=== PATIENT | female | born 1990 | race Caucasian/White ===

== ENCOUNTER 2017-04-10 16:01 | Emergency (ER) | payer SELFPAY ==
[2017-04-10] MEDS ORDERED: Sodium Chloride 0.9% 10 ML Syringe FLUSH PRN (16:05)
[2017-04-10] MEDS ORDERED: Sodium Chloride 0.9% 2.5 ML Syringe FLUSH PRN (16:05)
[2017-04-10] MEDS ORDERED: Aspirin 81 MG Tab.Chew PO ONE (16:05)
[2017-04-10] MEDS ORDERED: Ondansetron 4 MG/2 ML SDV IVPUSH ONE ×2 (16:07→16:40)
[2017-04-10] MEDS ORDERED: Famotidine 20 MG/2 ML SDV IVPUSH ONE (16:07)
[2017-04-10] MEDS ORDERED: Nitroglycerin 0.4 MG Tab.SL SL SCH (16:15)
[2017-04-10] MEDS ORDERED: Sodium Chloride 0.9% 1,000 ML IV ONE (16:40)
--- NOTE | 2017-04-10 16:55 | EDM.PDOC ---
ED HPI GENERAL MEDICAL PROBLEM - General Chief Complaint: Gastrointestinal Problem Stated Complaint: UNK Time Seen by Provider: 04/10/17 16:09 Source of Information: Reports: Patient History Limitations: Reports: No Limitations - History of Present Illness INITIAL COMMENTS - FREE TEXT/NARRATIVE: Presents to the ER reporting she is 9 weeks and has been nauseated generally the entire . This last week she has not been able to keep oral fluids down and feels that she is dehydrated. She states this is her fourth and in her last she had trouble with nausea and vomiting as well. She is otherwise well without dysuria, vaginal bleeding, abdominal pain or cramping, fever or upper respiratory symptoms. She has not established care but was seen at a clinic over in [facility] where she had a positive test and OB ultrasound which indicated a viable fetus. - Related Data Allergies Allergy/AdvReac Type Severity Reaction Status Date / Time No Known Allergies Allergy Verified 04/10/17 16:14 Home Meds: Home Meds . 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 ED EXAM - Physical Exam Exam: See Below Exam Limited By: No Limitations General Appearance: Alert, Mild Distress (Due to nausea) Ears: Normal External Exam Nose: Normal Inspection Throat/Mouth: Normal Inspection Head: Atraumatic, Normocephalic Neck: Normal Inspection Respiratory/Chest: No Respiratory Distress, Lungs Clear, Normal Breath Sounds, No Accessory Muscle Use Cardiovascular: Normal Peripheral Pulses, Regular Rate, Rhythm, No Murmur GI/Abdominal: Normal Bowel Sounds, Soft, Non-Tender, No Distention Back Exam: Normal Inspection Extremities: Normal Inspection Neurological: Alert, Oriented Psychiatric: Normal Affect, Normal Mood Skin Exam: Warm, Dry, Intact, Normal Color, No Rash Lymphatic: No Adenopathy Course - Vital Signs Last Recorded V/S: Last Vital Signs Temp 36.8 C 04/10/17 16:12 Pulse 88 04/10/17 16:12 Resp 16 04/10/17 16:12 BP 148/90 H 04/10/17 16:12 Pulse Ox 98 04/10/17 16:12 - Orders/Labs/Meds Orders: Active Orders 24 hr Category Date Time Status Cardiac Monitoring [RC] . DIRECTED Care 04/10/17 16:05 Inactive EKG Documentation Completion [RC] STAT Care 04/10/17 16:05 Inactive Oxygen Therapy, ED [RC] ASDIRECTED Care 04/10/17 16:04 Inactive Pulse Oximetry [RC] ASDIRECTED Care 04/10/17 16:05 Inactive Sodium Chloride 0.9% [Normal Saline] 1,000 ml Med 04/10/17 16:40 Ordered IV STAT Medication Orders Sodium Chloride (Normal Saline) 1,000 mls @ 999 mls/hr IV STAT ONE Stop: 04/10/17 17:40 Meds: Medications Generic Name Dose Route Start Last Admin Trade Name Freq PRN Reason Stop Dose Admin Sodium Chloride 1,000 mls @ 999 mls/hr 04/10/17 16:40 Normal Saline IV 04/10/17 17:40 STAT ONE Discontinued Medications Generic Name Dose Route Start Last Admin Trade Name Freq PRN Reason Stop Dose Admin Aspirin 324 mg 04/10/17 16:05 04/10/17 16:31 Aspirin PO 04/10/17 16:06 Not Given ONETIME ONE Famotidine 20 mg 04/10/17 16:07 04/10/17 16:32 Pepcid IVPUSH 04/10/17 16:08 Not Given ONETIME ONE Nitroglycerin 0.4 mg 04/10/17 16:15 Nitrostat SL 04/10/17 16:26 Q5M AVIS Ondansetron HCl 4 mg 04/10/17 16:07 04/10/17 16:32 Zofran IVPUSH 04/10/17 16:08 Not Given ONETIME ONE Ondansetron HCl 4 mg 04/10/17 16:40 Zofran IVPUSH 04/10/17 16:41 ONETIME ONE Sodium Chloride 10 ml 04/10/17 16:05 Saline Flush FLUSH ASDIRECTED PRN Keep Vein Open Sodium Chloride 2.5 ml 04/10/17 16:05 Saline Flush FLUSH ASDIRECTED PRN Keep Vein Open - Re-Assessments/Exams Free Text/Narrative Re-Assessment/Exam: 04/10/17 17:38 She states that she is feeling much better, not nauseated. She is tired and desires not to work today Departure - Departure Time of Disposition: 17:39 Disposition: Home, Self-Care 01 Condition: good Clinical Impression: Nausea and vomiting during - Discharge Information Referrals: PCP,None [Primary Care Provider] - Huy Aguilera MD [Physician] - [facility] [Outside] Forms: ED Department Discharge Additional Instructions: 1. please drink adequate oral fluids including water and electrolyte solutions such as Gatorade 2. please establish care within the next couple of weeks at one of the providers listed or another of your choice. 3. May try doxylamine (Unisom Sleep Tabs--10mg) and vitamin B6 10mg together 2 tabs each at bedtime. May increase slowly to 4 tabs daily of each. For nausea. - My Orders Last 24 Hours: My Active Orders 04/10/17 16:40 Sodium Chloride 0.9% [Normal Saline] 1,000 ml IV STAT - Assessment/Plan Last 24 Hours: My Active Orders 04/10/17 16:40 Sodium Chloride 0.9% [Normal Saline] 1,000 ml IV STAT
[2017-04-10 18:11] VITALS: BP 124/75
== END 2017-04-10 18:02 | disposition home or self-care (01) ==
LOC: MW.ED 16:01
DX: O21.9 Vomiting of pregnancy, unspecified (principal); O99.331 Smoking (tobacco) complicating pregnancy, first trimester; F17.210 Nicotine dependence, cigarettes, uncomplicated; Z3A.09 9 weeks gestation of pregnancy
CPT/HCPCS: 96361; 96374; 99285; J2405; J7040; 99284

== ENCOUNTER 2017-11-06 05:14 | Inpatient (IN) | payer MEDICAID ==
[2017-11-06] MEDS ORDERED: ceFAZolin 2 GM in Premix Bag 1 BAG IV ONE (05:23)
[2017-11-06] MEDS ORDERED: Sodium Chloride 0.9% 2.5 ML Syringe FLUSH PRN (05:23)
[2017-11-06] MEDS ORDERED: Sodium Chloride 0.9% 10 ML Syringe FLUSH PRN (05:23)
[2017-11-06] MEDS ORDERED: Citric Acid/Sodium Citrate Solution 30 ML Cup PO SCH (05:30)
[2017-11-06] MEDS ORDERED: Oxytocin/0.9 % Sodium Chloride 30 UNIT/500 ML BAG IV SCH (05:30)
--- NOTE | 2017-11-06 06:54 | PCM.PREANE ---
Preanesthetic Assessment - Anesthesia/Transfusion/Family Hx Anesthesia History: Prior Anesthesia Without Reaction Family History of Anesthesia Reaction: No Transfusion History: No Prior Transfusion(s) Intubation History: Unknown - Review of Systems General: No Symptoms Pulmonary: No Symptoms Cardiovascular: No Symptoms Gastrointestinal: No Symptoms Neurological: No Symptoms Other: Reports: None - Physical Assessment Height: 1.65 m Weight: 94.347 kg ASA Class: 2 Mental Status: Alert & Oriented x3 Airway Class: Mallampati = 2 Dentition: Reports: Normal Dentition Thyro-Mental Finger Breadths: 3 Mouth Opening Finger Breadths: 3 ROM/Head Extension: Full Lungs: Clear to Auscultation, Normal Respiratory Effort Cardiovascular: Regular Rate, Regular Rhythm - Lab Values: Laboratory Last Values WBC 10.34 K/uL (4.0-11.0) 11/05/17 13:31 RBC 4.30 M/uL (4.30-5.90) 11/05/17 13:31 Hgb 12.8 g/dL (12.0-16.0) 11/05/17 13:31 Hct 37.3 % (36.0-46.0) 11/05/17 13:31 MCV 86.7 fL (80.0-98.0) 11/05/17 13:31 MCH 29.8 pg (27.0-32.0) 11/05/17 13:31 MCHC 34.3 g/dL (31.0-37.0) 11/05/17 13:31 RDW Std Deviation 41.2 fl (28.0-62.0) 11/05/17 13:31 RDW Coeff of Shilo 13 % (11.0-15.0) 11/05/17 13:31 Plt Count 224 K/uL (150-400) 11/05/17 13:31 MPV 11.00 fL (7.40-12.00) 11/05/17 13:31 Nucleated RBC % 0.0 /100WBC 11/05/17 13:31 Nucleated RBCs # 0 K/uL 11/05/17 13:31 Blood Type A POSITIVE 11/05/17 13:31 Antibody Screen NEGATIVE 11/05/17 13:31 - Allergies Allergies/Adverse Reactions: Allergies Allergy/AdvReac Type Severity Reaction Status Date / Time No Known Allergies Allergy Verified 04/10/17 16:14 - Blood Blood Available: No - Anesthesia Plan Pre-Op Medication Ordered: None - Acknowledgements Anesthesia Type Planned: Spinal Pt an Appropriate Candidate for the Planned Anesthesia: Yes Alternatives and Risks of Anesthesia Discussed w Pt/Guardian: Yes Pt/Guardian Understands and Agrees with Anesthesia Plan: Yes PreAnesthesia Questionnaire - Past Health History Medical/Surgical History: Denies Medical/Surgical History HEENT History: Reports: None Gastrointestinal History: Reports: Other (See Below) Other Gastrointestinal History: heartburn with Genitourinary History: Reports: UTI, Recurrent 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 Martin - SUBSTANCE USE Smoking Status *Q: Current Every Day Smoker Tobacco Use Within Last Twelve Months: Cigarettes Recreational Drug Use History: No - HOME MEDS Home Medications: Home Meds PNV95/Ferrous Fumarate/FA [ Vitamin Tablet] 1 tab PO DAILY 11/01/17 [ History] Terconazole [Terazol 7 Vaginal Crm] 1 applic VAG BEDTIME 11/01/17 [History] - CURRENT (IN HOUSE) MEDS Current Meds: Current Medications Citric Acid/Sodium Citrate (Bicitra Solution) 30 ml PO .ONCE AVIS Lactated Ringer's (Ringers, Lactated) 1,000 mls @ 500 mls/hr IV .BOLUS AVIS Oxytocin/Sodium Chloride (Oxytocin 30 Unit/500 Ml-Ns) 30 unit in 500 mls @ 250 mls/hr IV TITRATE AVIS Sodium Chloride (Saline Flush) 10 ml FLUSH ASDIRECTED PRN PRN Reason: Keep Vein Open Sodium Chloride (Saline Flush) 2.5 ml FLUSH ASDIRECTED PRN PRN Reason: Keep Vein Open Discontinued Medications Cefazolin Sodium/Dextrose 2 gm (/ Premix) 50 mls @ 100 mls/hr IV ONETIME ONE Stop: 11/06/17 05:52
[2017-11-06] MEDS ORDERED: fentaNYL 100 MCG/2 ML SDV IVPUSH PRN (07:12)
[2017-11-06] MEDS ORDERED: fentaNYL 100 MCG/2 ML SDV ONE (07:16)
[2017-11-06] MEDS ORDERED: Morphine PF 10 MG/10 ML SDV ONE (07:16)
[2017-11-06] MEDS ORDERED: ePHEDrine 50 MG/ML SDV ONE (07:17)
[2017-11-06] MEDS ORDERED: Ondansetron 4 MG/2 ML SDV ONE (07:17)
[2017-11-06] MEDS ORDERED: Oxytocin 10 Units/1 ML SDV ONE (07:17)
[2017-11-06] MEDS ORDERED: Ketorolac 30 MG/ML SDV ONE (07:17)
[2017-11-06] MEDS ORDERED: diphenhydrAMINE 50 MG/ML SDV ONE (07:17)
[2017-11-06] MEDS ORDERED: Octyl 2-Cyanoacrylate 1 Tube ONE (07:17)
[2017-11-06] MEDS ORDERED: ceFAZolin 1 GM Vial ONE (07:18)
[2017-11-06] MEDS ORDERED: Sodium Chloride 0.9% 20 ML ONE (07:18)
[2017-11-06] MEDS: Lactated Ringers 1,000 ML IV SCH ×2 (07:24→07:29)
[2017-11-06] MEDS: Ketorolac 30 MG/ML SDV IVPUSH SCH ×3 (08:40→21:11)
[2017-11-06] MEDS ORDERED: diphenhydrAMINE 50 MG/ML SDV IVPUSH PRN (08:58)
[2017-11-06] MEDS ORDERED: Bisacodyl 10 MG Supp RECTAL PRN (08:58)
[2017-11-06] MEDS ORDERED: Lanolin 100% Cream 7 GM Tube TOP PRN (08:58)
[2017-11-06] MEDS ORDERED: Acetaminophen/oxyCODONE 325-5 MG Tab PO PRN ×2 (08:58)
[2017-11-06] MEDS ORDERED: Ondansetron 4 MG/2 ML SDV IV PRN (08:58)
[2017-11-06] MEDS ORDERED: Lactated Ringers 1,000 ML IV SCH (09:00)
--- NOTE | 2017-11-06 09:09 | PCM.OPNOTE ---
- General Post-Op/Procedure Note Date of Surgery/Procedure: 11/06/17 Operative Procedure(s): repeat low transverse c-sectin Findings: lower uterine segment is very thin. The tubes and ovaries appear normal. Liveborn female 7/8 weight pending. Pre Op Diagnosis: 39 weeks previous polyhydramnios Post-Op Diagnosis: Same Anesthesia Technique: Spinal Primary Surgeon: Nicki Franks Anesthesia Provider: Lauren Meza Pest Control Supervisor: Angi Clay Pathology: placenta to pathology Fluid Replacement, Intraop: 850 Output, Urine Amount: 100 EBL in mLs: 800 Complications: None Known Condition: Good
--- NOTE | 2017-11-06 09:35 | PCM.POSTAN ---
POST ANESTHESIA ASSESSMENT - MENTAL STATUS Mental Status: Alert, Oriented - RESPIRATORY Respiratory Status: Respiratory Rate WNL, Airway Patent, O2 Saturation Stable - CARDIOVASCULAR CV Status: Pulse Rate WNL, Blood Pressure Stable - GASTROINTESTINAL GI Status: No Symptoms - PAIN Pain Score: 0 - POST OP HYDRATION Hydration Status: Adequate & Stable
[2017-11-06] MEDS: Docusate Sodium 100 MG Cap PO SCH ×2 (10:26→21:11)
--- NOTE | 2017-11-06 16:54 | OR ---
SURGEON: Nicki Franks M.D. DATE OF PROCEDURE: 11/06/2017 PREOPERATIVE DIAGNOSES: 1. A 39-week intrauterine . Prior delivery, desires repeat C section. 2. Polyhydramnios asymmetric growth restriction. POSTOPERATIVE DIAGNOSES: 1. A 39-week intrauterine . Prior delivery, desires repeat C section. 2. Polyhydramnios asymmetric growth restriction. PROCEDURE: Repeat low transverse section. ANESTHESIA: Spinal. ESTIMATED BLOOD LOSS: 800 mL. FLUIDS: 850 mL crystalloid. FINDINGS: Liveborn female, score 7 and 8. Weight is pending at the time of dictation. Normal appearing tubes and ovaries. The lower uterine segment was very thin. COMPLICATIONS: None. DISPOSITION: Stable to recovery. BRIEF HISTORY: This is a 26-year-old female. She is G4, P2-0-1-2. She presents at 39 weeks' gestation for a repeat delivery. She has been closely monitored throughout the for polyhydramnios as well as asymmetric IUGR. She has been followed with perinatologist who recommended twice weekly testing including umbilical artery Dopplers, which have been normal. Her growth is improved in the 3rd trimester. TORCH titers were obtained due to the polyhydramnios and were negative. There was also a normal noninvasive testing for chromosomes. She herself has had poor weight gain and late onset to care. She is blood type A positive, rubella immune, group B strep negative. The risks of delivery were discussed including bleeding, infection, injury to bowel, bladder, blood vessels, injury to other organs, risk of thromboembolic event, and risk of anesthesia. Understanding all these risks, she does desire to proceed. DESCRIPTION OF PROCEDURE: With the patient in the left tilt position, under adequate spinal analgesia, the abdomen was prepped with chlorhexidine and draped in usual fashion for abdominal surgery. SCDs were in place. Diop catheter had been placed. She received 2 g of Ancef IV and an appropriate time-out was held. After documentation of adequate analgesia, the prior cicatrix was excised and the incision was carried through the subcutaneous tissue to the fascia, which was scored transversely in the midline. The fascia was elevated from the underlying rectus muscle and using sharp and blunt dissection. The rectus muscles were in the midline using sharp dissection. A finger was then placed into the peritoneal cavity. There were no adhesions to the anterior abdominal wall. The incision was extended cephalad and caudad using sharp dissection and the incision was extended also using blunt dissection. The Sharad O retractor was placed. The visceroperitoneum over the lower uterine segment was incised and in doing so, the lower uterine segment was noted to be very thin. In fact, the scalpel was not needed to pass through the lower uterine segment. A finger was utilized to separate the lower uterine segment. Amniotic membranes were ruptured. Copious clear fluid was noted. The head was delivered via the uterine incision with fundal pressure. However, most likely due to the polyhydramnios, adequate fundal pressure could not be obtained to deliver the head. Therefore, a vacuum was placed 2 cm anterior to the posterior fontanelle in the midsagittal line and with fundal pressure and gentle traction, the head was delivered. There were no pop offs. The vacuum was removed. The 's shoulders and body were delivered. The infant was bulb suctioned by nose and mouth. The cord was clamped x2 and cut and the infant was handed to Dr. Hayes who was in attendance at delivery. The infant was a liveborn female, score 7 and 8. Weight is pending at the time of dictation. Cord blood was collected for cord ABGs as well as routine cord blood sampling. The placenta was removed by manual extraction. The cervix was opened with a ring forceps. The placenta was noted to be very large with more calcifications than anticipated and it was sent to Pathology. The uterine incision after the uterus was cleaned with a dry laparotomy tape was closed with a running lock suture of 0 Polysorb followed by an imbricating layer of 0 Polysorb. The uterine incision was carefully inspected. It was completely hemostatic. The posterior cul-de- sac and pericolic gutters were cleaned with wet laparotomy tape. The uterine incision was again inspected. It was hemostatic. The Sharad O retractor was removed. Final inspection confirmed hemostasis. Therefore, the peritoneum and rectus muscles were reapproximated in the midline using a running mattress suture of 0 Polysorb. The posterior aspect of the fascia was inspected and any areas of bleeding that were noted were cauterized. The fascia was closed with a running suture of 0 Polysorb. Subcutaneous tissue was copiously irrigated and any areas of bleeding that were noted were cauterized. The skin was closed with a running subcuticular suture of 3-0 Polysorb followed by skin glue. Final sponge, needle, and instrument counts were reported as correct. There were no known complications. The infant is in nursery in good condition. Mother is in recovery room in good condition. MEGHNA ALEMAN /[id number]
--- NOTE | 2017-11-06 19:30 | PCM48HPAN ---
Post Anesthesia Note - EVALUATION WITHIN 48HRS OF ANESTHETIC Vital Signs in Normal Range: Yes Patient Participated in Evaluation: Yes Respiratory Function Stable: Yes Airway Patent: Yes Cardiovascular Function Stable: Yes Hydration Status Stable: Yes Pain Control Satisfactory: Yes Nausea and Vomiting Control Satisfactory: Yes Mental Status Recovered: Yes
[2017-11-07] MEDS: Ketorolac 30 MG/ML SDV IVPUSH SCH ×2 (02:55→08:59)
--- NOTE | 2017-11-07 08:42 | PCM.PNPP ---
- General Info Date of Service: 11/07/17 Functional Status: Reports: Pain Controlled, Tolerating Diet, Ambulating, Urinating - Review of Systems General: Reports: No Symptoms HEENT: Reports: No Symptoms Pulmonary: Reports: No Symptoms Cardiovascular: Reports: No Symptoms Gastrointestinal: Reports: No Symptoms Genitourinary: Reports: No Symptoms Musculoskeletal: Reports: No Symptoms Skin: Reports: No Symptoms Neurological: Reports: No Symptoms Psychiatric: Reports: No Symptoms - Patient Data Vital Signs - Most Recent: Last Vital Signs Temp 36.8 C 11/07/17 04:00 Pulse 91 11/07/17 06:00 Resp 16 11/07/17 07:00 BP 107/56 L 11/07/17 04:00 Pulse Ox 96 11/07/17 07:00 Weight - Most Recent: 94.347 kg I&O - Last 24 Hours: Intake & Output 11/06/17 11/07/17 11/07/17 22:59 06:59 14:59 Intake Total 1000 Output Total 700 Balance 300 Lab Results - Last 24 Hours: Laboratory Results - last 24 hr 11/07/17 Range/Units 05:30 Hgb 10.5 L (12.0-16.0) g/dL Hct 30.4 L (36.0-46.0) % Med Orders - Current: Current Medications Bisacodyl (Dulcolax) 10 mg RECTAL .ONCE PRN PRN Reason: Constipation Citric Acid/Sodium Citrate (Bicitra Solution) 30 ml PO .ONCE AVIS Last Admin: 11/06/17 07:57 Dose: 30 ml Diphenhydramine HCl (Benadryl) 25 mg IVPUSH Q6H PRN PRN Reason: Itching or Nausea Last Admin: 11/06/17 13:20 Dose: 25 mg Docusate Sodium (Colace) 100 mg PO BID AVIS Last Admin: 11/06/17 21:11 Dose: 100 mg Emollient Ointment (Lansinoh Hpa) 0 gm TOP ASDIRECTED PRN PRN Reason: Sore Nipples Lactated Ringer's (Ringers, Lactated) 1,000 mls @ 500 mls/hr IV .BOLUS AVIS Last Admin: 11/06/17 07:29 Dose: 500 mls/hr Oxytocin/Sodium Chloride (Oxytocin 30 Unit/500 Ml-Ns) 30 unit in 500 mls @ 250 mls/hr IV TITRATE [facility] Lactated Ringer's (Ringers, Lactated) 1,000 mls @ 125 mls/hr IV ASDIRECTED [facility] Ibuprofen (Motrin) 800 mg PO Q8H PRN PRN Reason: mild pain or fever Ketorolac Tromethamine (Toradol) 30 mg IVPUSH Q6H [facility] Stop: 11/07/17 09:01 Last Admin: 11/07/17 02:55 Dose: 30 mg Ondansetron HCl (Zofran) 4 mg IV Q4H PRN PRN Reason: Nausea/Vomiting Oxycodone/Acetaminophen (Percocet 325-5 Mg) 1 tab PO Q4H PRN PRN Reason: Pain (moderate 4-6) Oxycodone/Acetaminophen (Percocet 325-5 Mg) 2 tab PO Q4H PRN PRN Reason: Pain (moderate 4-6) Sodium Chloride (Saline Flush) 10 ml FLUSH ASDIRECTED PRN PRN Reason: Keep Vein Open Sodium Chloride (Saline Flush) 2.5 ml FLUSH ASDIRECTED PRN PRN Reason: Keep Vein Open Discontinued Medications Cefazolin Sodium (Ancef) Confirm Administered Dose 2 gm .ROUTE .STK-MED ONE Stop: 11/06/17 07:19 Diphenhydramine HCl (Benadryl) Confirm Administered Dose 50 mg .ROUTE .STK-MED ONE Stop: 11/06/17 07:18 Ephedrine Sulfate (Ephedrine Sulfate) Confirm Administered Dose 50 mg .ROUTE .STK-MED ONE Stop: 11/06/17 07:18 Fentanyl (Sublimaze) 50 mcg IVPUSH Q5M PRN PRN Reason: Pain (severe 7-10) Stop: 11/06/17 11:00 Fentanyl (Sublimaze) Confirm Administered Dose 100 mcg .ROUTE .STK-MED ONE Stop: 11/06/17 07:17 Cefazolin Sodium/Dextrose 2 gm (/ Premix) 50 mls @ 100 mls/hr IV ONETIME ONE Stop: 11/06/17 05:52 Sodium Chloride (Normal Saline) Confirm Administered Dose 20 mls @ as directed .ROUTE .STK-MED ONE Stop: 11/06/17 07:19 Ketorolac Tromethamine (Toradol) Confirm Administered Dose 30 mg .ROUTE .STK- MED ONE Stop: 11/06/17 07:18 Morphine Sulfate (Duramorph Pf) Confirm Administered Dose 10 mg .ROUTE .STK-MED ONE Stop: 11/06/17 07:17 Octyl Cyanoacrylate (Dermabond Advance) Confirm Administered Dose 1 applic .ROUTE .STK-MED ONE Stop: 11/06/17 07:18 Ondansetron HCl (Zofran) Confirm Administered Dose 4 mg .ROUTE .STK-MED ONE Stop: 11/06/17 07:18 Oxytocin (Pitocin) Confirm Administered Dose 20 unit .ROUTE .STK-MED ONE Stop: 11/06/17 07:18 - Interaction Disposition, : [place] in Room with Family Infant Interaction: Not Interacting Feeding: Breastfed ; Nursed Well Support Person: Significant Other - Recovery Exam Fundal Tone: Firm Fundal Level: 1 Fingerbreadths Below Umbilicus Fundal Placement: Midline Lochia Amount: Scant Lochia Color: Rubra/Red Perineum Description: Intact, Minimal Bruising/Swelling Episiotomy/Laceration: None Bladder Status: Voiding Urinary Elimination: Voided - Exam General: Alert, Oriented HEENT: Pupils Equal Neck: Supple Lungs: Clear to Auscultation, Normal Respiratory Effort Cardiovascular: Regular Rate, Regular Rhythm GI/Abdominal Exam: Normal Bowel Sounds, Soft, Non-Tender, No Organomegaly, No Mass Extremities: Normal Inspection, Non-Tender, No Pedal Edema Skin: Warm, Dry, Intact Wound/Incisions: Healing Well Neurological: No New Focal Deficit Psy/Mental Status: Alert, Normal Affect, Normal Mood - Problem List & Annotations (1) delivery delivered SNOMED Code(s): 769407914 Code(s): O82 - ENCOUNTER FOR DELIVERY WITHOUT INDICATION Status: Acute Current Visit: Yes - Problem List Review Problem List Initiated/Reviewed/Updated: Yes - My Orders Last 24 Hours: My Active Orders 11/06/17 08:58 Ambulate [RC] PER UNIT ROUTINE Communication Order [RC] PER UNIT ROUTINE Communication Order [RC] PER UNIT ROUTINE Communication Order [RC] Per Unit Routine May Shower [RC] ASDIRECTED Notify Provider Intake and Out [RC] ASDIRECTED Notify Provider Vital Signs [RC] ASDIRECTED RT Incentive Spirometry [RC] Q2HWA Vital Signs [RC] PER UNIT ROUTINE Acetaminophen/oxyCODONE [Percocet 325-5 MG] 1 tab PO Q4H PRN Acetaminophen/oxyCODONE [Percocet 325-5 MG] 2 tab PO Q4H PRN Bisacodyl [Dulcolax] 10 mg RECTAL .ONCE PRN Lanolin [Lansinoh HPA] See Dose Instructions TOP ASDIRECTED PRN Ondansetron [Zofran] 4 mg IV Q4H PRN diphenhydrAMINE [Benadryl] 25 mg IVPUSH Q6H PRN Abdominal Binder [OM.PC] Routine Assess Lochia [WOMSER] Per Unit Routine Assess Uterine Involution [WOMSER] Per Unit Routine Breast Pump [WOMSER] Per Unit Routine Peripheral IV Discontinue [OM.PC] Routine Sequential Compression Device [OM.PC] Per Unit Routine 11/06/17 08:59 Antiembolic Devices [RC] PER UNIT ROUTINE 11/06/17 09:00 Docusate Sodium [Colace] 100 mg PO BID Ketorolac [Toradol] 30 mg IVPUSH Q6H Lactated Ringers [Ringers, Lactated] 1,000 ml IV ASDIRECTED 11/06/17 Dinner Regular Diet [DIET] 11/07/17 15:00 Ibuprofen [Motrin] 800 mg PO Q8H PRN - Assessment Assessment:: POD#1 after repeat , stable, minimal lochia, is going well minimal pain. She is worried about baby's fontanelle (wide but soft). - Plan Plan:: Continue care, oral pain medications today, may shower, remove IV after last Toradol dose. I gave copy of antepartum ultrasounds showing asymmetry (but normal measurements) of cerebral ventricles to Dr. Hayes. Anticipate discharge tomorrow.
[2017-11-07] MEDS: Docusate Sodium 100 MG Cap PO SCH ×2 (08:59→21:15)
[2017-11-07] MEDS: Ibuprofen 800 MG Tab PO PRN (15:50)
[2017-11-08] MEDS: Ibuprofen 800 MG Tab PO PRN (00:48)
[2017-11-08 08:06] VITALS: BP 120/71
--- NOTE | 2017-11-08 08:19 | PCM.PNPP ---
<Lena Odom - Last Filed: 11/08/17 08:15> - General Info Date of Service: 11/08/17 Functional Status: Reports: Pain Controlled, Tolerating Diet, Ambulating, Urinating - Review of Systems General: Denies: Fever, Weakness, Fatigue Pulmonary: Denies: Shortness of Breath, Pleuritic Chest Pain, Cough Cardiovascular: Denies: Chest Pain, Palpitations, Dyspnea on Exertion Gastrointestinal: Denies: Abdominal Pain Genitourinary: Denies: Dysuria - General Info Date of Service: 11/08/17 - Patient Data Vital Signs - Most Recent: Last Vital Signs Temp 37.1 C 11/08/17 07:15 Pulse 83 11/08/17 07:15 Resp 16 11/08/17 07:15 BP 120/71 11/08/17 07:15 Pulse Ox 97 11/08/17 07:15 Weight - Most Recent: 94.347 kg Med Orders - Current: Current Medications Bisacodyl (Dulcolax) 10 mg RECTAL .ONCE PRN PRN Reason: Constipation Citric Acid/Sodium Citrate (Bicitra Solution) 30 ml PO .ONCE AVIS Last Admin: 11/06/17 07:57 Dose: 30 ml Diphenhydramine HCl (Benadryl) 25 mg IVPUSH Q6H PRN PRN Reason: Itching or Nausea Last Admin: 11/06/17 13:20 Dose: 25 mg Docusate Sodium (Colace) 100 mg PO BID AVIS Last Admin: 11/07/17 21:15 Dose: 100 mg Emollient Ointment (Lansinoh Hpa) 0 gm TOP ASDIRECTED PRN PRN Reason: Sore Nipples Lactated Ringer's (Ringers, Lactated) 1,000 mls @ 500 mls/hr IV .BOLUS [facility] Last Admin: 11/06/17 07:29 Dose: 500 mls/hr Oxytocin/Sodium Chloride (Oxytocin 30 Unit/500 Ml-Ns) 30 unit in 500 mls @ 250 mls/hr IV TITRATE AVIS Lactated Ringer's (Ringers, Lactated) 1,000 mls @ 125 mls/hr IV ASDIRECTED AVIS Ibuprofen (Motrin) 800 mg PO Q8H PRN PRN Reason: mild pain or fever Last Admin: 11/08/17 00:48 Dose: 800 mg Ondansetron HCl (Zofran) 4 mg IV Q4H PRN PRN Reason: Nausea/Vomiting Oxycodone/Acetaminophen (Percocet 325-5 Mg) 1 tab PO Q4H PRN PRN Reason: Pain (moderate 4-6) Oxycodone/Acetaminophen (Percocet 325-5 Mg) 2 tab PO Q4H PRN PRN Reason: Pain (moderate 4-6) Sodium Chloride (Saline Flush) 10 ml FLUSH ASDIRECTED PRN PRN Reason: Keep Vein Open Sodium Chloride (Saline Flush) 2.5 ml FLUSH ASDIRECTED PRN PRN Reason: Keep Vein Open Discontinued Medications Cefazolin Sodium (Ancef) Confirm Administered Dose 2 gm .ROUTE .STK-MED ONE Stop: 11/06/17 07:19 Diphenhydramine HCl (Benadryl) Confirm Administered Dose 50 mg .ROUTE .STK-MED ONE Stop: 11/06/17 07:18 Ephedrine Sulfate (Ephedrine Sulfate) Confirm Administered Dose 50 mg .ROUTE .STK-MED ONE Stop: 11/06/17 07:18 Fentanyl (Sublimaze) 50 mcg IVPUSH Q5M PRN PRN Reason: Pain (severe 7-10) Stop: 11/06/17 11:00 Fentanyl (Sublimaze) Confirm Administered Dose 100 mcg .ROUTE .STK-MED ONE Stop: 11/06/17 07:17 Cefazolin Sodium/Dextrose 2 gm (/ Premix) 50 mls @ 100 mls/hr IV ONETIME ONE Stop: 11/06/17 05:52 Last Admin: 11/07/17 10:03 Dose: Not Given Sodium Chloride (Normal Saline) Confirm Administered Dose 20 mls @ as directed .ROUTE .STK-MED ONE Stop: 11/06/17 07:19 Ketorolac Tromethamine (Toradol) Confirm Administered Dose 30 mg .ROUTE .STK- MED ONE Stop: 11/06/17 07:18 Ketorolac Tromethamine (Toradol) 30 mg IVPUSH Q6H AVIS Stop: 11/07/17 09:01 Last Admin: 11/07/17 08:59 Dose: 30 mg Morphine Sulfate (Duramorph Pf) Confirm Administered Dose 10 mg .ROUTE .STK-MED ONE Stop: 12/12/17 07:17 Octyl Cyanoacrylate (Dermabond Advance) Confirm Administered Dose 1 applic .ROUTE .STK-MED ONE Stop: 11/06/17 07:18 Ondansetron HCl (Zofran) Confirm Administered Dose 4 mg .ROUTE .STK-MED ONE Stop: 11/06/17 07:18 Oxytocin (Pitocin) Confirm Administered Dose 20 unit .ROUTE .STK-MED ONE Stop: 11/06/17 07:18 - Interaction Infant Disposition, : [place] in Room with Family Infant Interaction: Not Interacting Feeding: Breastfed Infant; Nursed Well Support Person: Significant Other - Recovery Exam Fundal Tone: Firm Fundal Level: 1 Fingerbreadths Below Umbilicus Fundal Placement: Midline Lochia Amount: Small Lochia Color: Rubra/Red Perineum Description: Intact, Minimal Bruising/Swelling Episiotomy/Laceration: None Bladder Status: Voiding Urinary Elimination: Voided - Exam General: Alert, Oriented Neck: Supple Lungs: Clear to Auscultation, Normal Respiratory Effort Cardiovascular: Regular Rate, Regular Rhythm GI/Abdominal Exam: Normal Bowel Sounds, Soft, Non-Tender, No Mass Extremities: Normal Inspection, Pedal Edema (trace) Skin: Warm, Dry, Intact - Problem List & Annotations (1) delivery delivered SNOMED Code(s): 522161485 Code(s): O82 - ENCOUNTER FOR DELIVERY WITHOUT INDICATION Status: Acute Current Visit: Yes - Problem List Review Problem List Initiated/Reviewed/Updated: Yes - Assessment Assessment:: POD#2 after repeat , stable, minimal and lochia. Discharge home today. - Plan Plan:: Discharge home today. Nothing in the vagina for 6 weeks. Continue PNV while breast feeding. RX for Percocet to use as needed for pain. No lifting greater than 10lbs. Instructed patient to call if she develops fever greater than 101 or bleeding through a large pad an hour. F/U with [facility] in 2 and 6 weeks. <Nicki Franks - Last Filed: 11/08/17 08:28> - Patient Data Vital Signs - Most Recent: Last Vital Signs Temp 37.1 C 11/08/17 07:15 Pulse 83 11/08/17 07:15 Resp 16 11/08/17 07:15 BP 120/71 11/08/17 07:15 Pulse Ox 97 11/08/17 07:15 Med Orders - Current: Current Medications Bisacodyl (Dulcolax) 10 mg RECTAL .ONCE PRN PRN Reason: Constipation Citric Acid/Sodium Citrate (Bicitra Solution) 30 ml PO .ONCE AVIS Last Admin: 11/06/17 07:57 Dose: 30 ml Diphenhydramine HCl (Benadryl) 25 mg IVPUSH Q6H PRN PRN Reason: Itching or Nausea Last Admin: 11/06/17 13:20 Dose: 25 mg Docusate Sodium (Colace) 100 mg PO BID AVIS Last Admin: 11/07/17 21:15 Dose: 100 mg Emollient Ointment (Lansinoh Hpa) 0 gm TOP ASDIRECTED PRN PRN Reason: Sore Nipples Lactated Ringer's (Ringers, Lactated) 1,000 mls @ 500 mls/hr IV .BOLUS [facility] Last Admin: 11/06/17 07:29 Dose: 500 mls/hr Oxytocin/Sodium Chloride (Oxytocin 30 Unit/500 Ml-Ns) 30 unit in 500 mls @ 250 mls/hr IV TITRATE AVIS Lactated Ringer's (Ringers, Lactated) 1,000 mls @ 125 mls/hr IV ASDIRECTED [facility] Ibuprofen (Motrin) 800 mg PO Q8H PRN PRN Reason: mild pain or fever Last Admin: 11/08/17 00:48 Dose: 800 mg Ondansetron HCl (Zofran) 4 mg IV Q4H PRN PRN Reason: Nausea/Vomiting Oxycodone/Acetaminophen (Percocet 325-5 Mg) 1 tab PO Q4H PRN PRN Reason: Pain (moderate 4-6) Oxycodone/Acetaminophen (Percocet 325-5 Mg) 2 tab PO Q4H PRN PRN Reason: Pain (moderate 4-6) Sodium Chloride (Saline Flush) 10 ml FLUSH ASDIRECTED PRN PRN Reason: Keep Vein Open Sodium Chloride (Saline Flush) 2.5 ml FLUSH ASDIRECTED PRN PRN Reason: Keep Vein Open Discontinued Medications Cefazolin Sodium (Ancef) Confirm Administered Dose 2 gm .ROUTE .STK-MED ONE Stop: 11/06/17 07:19 Diphenhydramine HCl (Benadryl) Confirm Administered Dose 50 mg .ROUTE .STK-MED ONE Stop: 11/06/17 07:18 Ephedrine Sulfate (Ephedrine Sulfate) Confirm Administered Dose 50 mg .ROUTE .STK-MED ONE Stop: 11/06/17 07:18 Fentanyl (Sublimaze) 50 mcg IVPUSH Q5M PRN PRN Reason: Pain (severe 7-10) Stop: 11/06/17 11:00 Fentanyl (Sublimaze) Confirm Administered Dose 100 mcg .ROUTE .STK-MED ONE Stop: 11/06/17 07:17 Cefazolin Sodium/Dextrose 2 gm (/ Premix) 50 mls @ 100 mls/hr IV ONETIME ONE Stop: 11/06/17 05:52 Last Admin: 11/07/17 10:03 Dose: Not Given Sodium Chloride (Normal Saline) Confirm Administered Dose 20 mls @ as directed .ROUTE .STK-MED ONE Stop: 11/06/17 07:19 Ketorolac Tromethamine (Toradol) Confirm Administered Dose 30 mg .ROUTE .STK- MED ONE Stop: 11/06/17 07:18 Ketorolac Tromethamine (Toradol) 30 mg IVPUSH Q6H [facility]IS Stop: 11/07/17 09:01 Last Admin: 11/07/17 08:59 Dose: 30 mg Morphine Sulfate (Duramorph Pf) Confirm Administered Dose 10 mg .ROUTE .STK-MED ONE Stop: 11/06/17 07:17 Octyl Cyanoacrylate (Dermabond Advance) Confirm Administered Dose 1 applic .ROUTE .STK-MED ONE Stop: 11/06/17 07:18 Ondansetron HCl (Zofran) Confirm Administered Dose 4 mg .ROUTE .STK-MED ONE Stop: 11/06/17 07:18 Oxytocin (Pitocin) Confirm Administered Dose 20 unit .ROUTE .STK-MED ONE Stop: 11/06/17 07:18 - Problem List & Annotations (1) delivery delivered SNOMED Code(s): 697478751 Code(s): O82 - ENCOUNTER FOR DELIVERY WITHOUT INDICATION Status: Acute Current Visit: Yes - Problem List Review Problem List Initiated/Reviewed/Updated: Yes - My Orders Last 24 Hours: My Active Orders 11/07/17 15:00 Ibuprofen [Motrin] 800 mg PO Q8H PRN - Plan Plan:: patient was seen by me and I agree with above.
== END 2017-11-08 10:50 | disposition home or self-care (01) | DRG 765 ==
LOC: MW.OB 05:14
PROVIDERS: ADMIT Obstetrics & Gynecology; ATTEND Obstetrics & Gynecology
PROC: 10D00Z1 Extraction of Products of Conception, Low, Open Approach (ICD-10-PCS; principal; 2017-11-06)
DX: O40.3XX0 Polyhydramnios, third trimester, not applicable or unspecified (principal); O36.5930 Maternal care for other known or suspected poor fetal growth, third trimester, not applicable or unspecified; Z3A.39 39 weeks gestation of pregnancy; Z37.0 Single live birth
CPT/HCPCS: 01961; 36415; 59025; 85014; 85018; 85027; 86850; 86900; 86901; 88307; A9270-GY; J0690; J1200; J1885; J2270; J2405; J2590; J3010; J7120

== ENCOUNTER 2018-11-30 22:53 | Emergency (ER) | payer SELFPAY ==
--- NOTE | 2018-11-30 23:06 | EDM.PDOC ---
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 Past medical history: As per history of present illness and as reviewed below otherwise noncontributory. Surgical history: As per history of present illness and as reviewed below otherwise noncontributory. Social history: No reported history of drug or alcohol abuse. Family history: As per history of present illness and as reviewed below otherwise noncontributory. Physical exam: HEENT: Atraumatic, normocephalic, pupils reactive, negative for conjunctival pallor or scleral icterus, mucous membranes moist, throat clear, neck supple, nontender, trachea midline. Lungs: Clear to auscultation, breath sounds equal bilaterally, chest nontender. Heart: S1S2, regular, negative for clicks, rubs, or JVD. Abdomen: Soft, nondistended, nontender. Negative for masses or hepatosplenomegaly. Negative for costovertebral tenderness. Pelvis: Stable nontender. Genitourinary: Deferred. Rectal: Deferred. Extremities: Atraumatic, negative for cords or calf pain. Neurovascular unremarkable. Straight leg raise does increase symptoms but I'm able to lift past 30 with no radiculopathy Neuro: Awake, alert, oriented. Cranial nerves II through XII unremarkable. Cerebellum unremarkable. Motor and sensory unremarkable throughout. Exam nonfocal. Footdrop or saddle anesthesia Diagnostics: []Her spine UA hCG Therapeutics: [] Levaquin 500 milligrams by mouth daily #10 no refill Toradol Flexeril Toradol 60 IM Impression: [] UTI Paraspinous muscle spasm Definitive disposition and diagnosis as appropriate pending reevaluation and review of above. Lower Back Pain Score (Numeric/FACES): 8 - Related Data Allergies Allergy/AdvReac Type Severity Reaction Status Date / Time No Known Allergies Allergy Verified 11/30/18 23:06 Home Meds: Home Meds . [No Known Home Meds] 11/30/18 [History] Past Medical History - Past Health History Medical/Surgical History: Denies Medical/Surgical History HEENT History: Reports: None Gastrointestinal History: Reports: Other (See Below) Other Gastrointestinal History: heartburn with Genitourinary History: Reports: UTI, Recurrent [employer]ER History: Reports: , Spontaneous Endocrine/Metabolic History: Reports: Obesity/BMI 30+ - Infectious Disease History Infectious Disease History: Reports: Chicken Pox - Past Surgical History Head Surgeries/Procedures: Reports: None HEENT Surgical History: Reports: Tonsillectomy Female Surgical History: Reports: Section (x2), Other (See Below) Other Female Surgeries/Procedures: surgery for blocked ureter in [facility] by Dr. Martin Social & Family History - Family History Family Medical History: Noncontributory Cardiac: Reports: None Respiratory: Reports: None GI: Reports: None : Reports: None OBGYN: Reports: Musculoskeletal: Reports: None Neurological: Reports: None Psychiatric: Reports: None Endocrine/Metabolic: Reports: None Hematologic: Reports: None Immunologic: Reports: None Dermatologic: Reports: None Oncologic: Reports: Lung - Caffeine Use Caffeine Use: Reports: Coffee, Soda, Tea ED ROS GENERAL - Review of Systems Review Of Systems: See Below ED EXAM, GENERAL - Physical Exam Exam: See Below Course - Vital Signs Last Recorded V/S: Last Vital Signs Temp 97.6 F 11/30/18 23:03 Pulse 100 11/30/18 23:03 Resp 18 11/30/18 23:03 BP 183/101 H 11/30/18 23:03 Pulse Ox 97 11/30/18 23:03 - Orders/Labs/Meds Orders: Active Orders 24 hr Category Date Time Status Lumbar Spine 2 or 3V [CR] Stat Exams 11/30/18 23:05 Taken CULTURE URINE [RM] Stat Lab 11/30/18 23:10 Received Labs: Laboratory Tests 11/30/18 11/30/18 Range/Units 23:10 23:10 Urine Color YELLOW Urine Appearance SLT CLOUDY Urine pH 6.0 (5.0-8.0) Ur Specific [place] 1.020 (1.001-1.035) Urine Protein NEGATIVE (NEGATIVE) mg/dL Urine Glucose (UA) NEGATIVE (NEGATIVE) mg/dL Urine Ketones NEGATIVE (NEGATIVE) mg/dL Urine Occult Blood MODERATE H (NEGATIVE) Urine Nitrite NEGATIVE (NEGATIVE) Urine Bilirubin NEGATIVE (NEGATIVE) Urine Urobilinogen 0.2 (<2.0) EU/dL Ur Leukocyte Esterase TRACE H (NEGATIVE) Urine RBC 1-2 (0-2/HPF) Urine WBC 0-1 (0-5/HPF) Ur Epithelial Cells MODERATE (NONE-FEW) Urine Bacteria RARE (NEGATIVE) Urine HCG, Qual NEGATIVE (NEGATIVE) Departure - Departure Time of Disposition: 00:26 Disposition: Home, Self-Care 01 Condition: Good Clinical Impression: Spasm of lumbar paraspinous muscle, UTI (urinary tract infection) - Discharge Information Referrals: PCP,None [Primary Care Provider] - Forms: ED Department Discharge Additional Instructions: The following information is given to patients seen in the emergency department who are being discharged to home. This information is to outline your options for follow-up care. We provide all patients seen in our emergency department with a follow-up referral. The need for follow-up, as well as the timing and circumstances, are variable depending upon the specifics of your emergency department visit. If you don't have a primary care physician on staff, we will provide you with a referral. We always advise you to contact your personal physician following an emergency department visit to inform them of the circumstance of the visit and for follow-up with them and/or the need for any referrals to a consulting specialist. The emergency department will also refer you to a specialist when appropriate. This referral assures that you have the opportunity for follow-up care with a specialist. All of these measure are taken in an effort to provide you with optimal care, which includes your follow-up. Under all circumstances we always encourage you to contact your private physician who remains a resource for coordinating your care. When calling for follow-up care, please make the office aware that this follow-up is from your recent emergency room visit. If for any reason you are refused follow-up, please contact the [facility] emergency department at and asked to speak to the emergency department charge nurse. - My Orders Last 24 Hours: My Active Orders 11/30/18 23:05 Lumbar Spine 2 or 3V [CR] Stat 11/30/18 23:10 CULTURE URINE [RM] Stat - Assessment/Plan Last 24 Hours: My Active Orders 11/30/18 23:05 Lumbar Spine 2 or 3V [CR] Stat 11/30/18 23:10 CULTURE URINE [RM] Stat
[2018-12-01] MEDS ORDERED: Levofloxacin 500 MG Tab PO ONE (00:27)
[2018-12-01] MEDS ORDERED: Ketorolac 60 MG/2 ML SDV IM ONE (00:27)
[2018-12-01 01:25] VITALS: BP 152/98
--- NOTE | 2018-12-02 17:26 | CR ---
EXAM DATE: 11/30/18 PATIENT'S AGE: 28 Patient: NAILA HOFFMAN Facility: [place], [place] Site . Site : [id number] Study: XRay Spine Lumbar [id number] 12:03:08 AM Ordering Physician: Doctor Barker Final Report: INDICATION: Severe back pain x4 days, back spasm TECHNIQUE: Lumbar spine 3 view. COMPARISON: None FINDINGS: Bones: Straightening of the lumbar spine with normal alignment. No fractures or significant bone lesions. Joints: Disc spaces and facets are unremarkable. Soft tissues: Unremarkable. IMPRESSION: Straightening of the lumbar spine. Findings may be related to back spasm. Dictated by Damion Espinosa MD @ 12/01/2018 12:17:19 AM Dictated by: Damion Espinosa MD @ 12/01/2018 00:17:33 (Electronic Signature) Report Signed by Proxy. LELE
== END 2018-12-01 00:50 | disposition home or self-care (01) ==
LOC: MW.ED 22:53
DX: N39.0 Urinary tract infection, site not specified (principal); M62.830 Muscle spasm of back
CPT/HCPCS: 72100; 81001; 81025; 87086; 96372; 99283; A9270; J1885

== ENCOUNTER 2021-02-09 19:17 | Emergency (ER) | payer MEDICAID ==
[2021-02-09 19:40] VITALS: BP 145/84; PULSE 101
[2021-02-09 20:05] LABS: BLOOD UREA NITROGEN,BUN 8 mg/dL (7.0-18.0); CARBON DIOXIDE,CO2 22.3 mmol/L (21.0-32.0); CHLORIDE,CL 100 mmol/L (98-107); GLUCOSE RANDOM 103 mg/dL (74-106); POTASSIUM,K 3.3 mmol/L (3.5-5.1); SODIUM,NA 134 mmol/L (136-145)
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
== END 2021-02-09 21:50 | disposition home or self-care (01) ==
LOC: MW.ED 19:17
DX: O99.891 Other specified diseases and conditions complicating pregnancy (principal); M23.91 Unspecified internal derangement of right knee; O99.211 Obesity complicating pregnancy, first trimester; Z3A.12 12 weeks gestation of pregnancy
CPT/HCPCS: 36415; 70450; 70450-26; 73030-26-RT; 73030-RT; 73562-26-RT; 73562-RT; 76801; 76801-26; 80048; 81001; 85025; 99283; 99284-25